=== PATIENT | male | born 1995 | race Two or more races ===

== ENCOUNTER 2018-10-01 13:26 | Emergency (ER) | payer MEDICAID ==
[~2018-10-01] VITALS: Ht 162.6 cm; Wt 79.0 kg
[2018-10-01 14:54] VITALS: BP 106/75
[2018-10-01] MEDS ORDERED: IBUPROFEN 600MG TABLET PO ONE (15:00)
== END 2018-10-01 15:22 | disposition home or self-care (01) ==
LOC: ER 13:26
DX: H61.001 Unspecified perichondritis of right external ear (principal); J45.909 Unspecified asthma, uncomplicated; F12.10 Cannabis abuse, uncomplicated
CPT/HCPCS: 99283

== ENCOUNTER 2019-03-31 09:18 | Emergency (ER) | payer MEDICAID ==
[~2019-03-31] VITALS: Ht 162.6 cm; Wt 79.0 kg
[2019-03-31 09:46] VITALS: BP 114/56
[2019-03-31] MEDS ORDERED: DEXAMETHASONE 4MG TABLET PO ONE (10:45)
[2019-03-31] MEDS ORDERED: IPRATROPIUM/ALBUTEROL 0.5-3(2.5)MG/3ML NEB HHN ONE ×2 (10:45→11:45)
== END 2019-03-31 11:58 | disposition home or self-care (01) ==
LOC: ER 09:18
DX: J45.909 Unspecified asthma, uncomplicated (principal); F12.10 Cannabis abuse, uncomplicated
CPT/HCPCS: 71045; 94640; 99284; J7620; J8540; Z7610

== ENCOUNTER 2019-04-13 13:51 | Emergency (ER) | payer SELFPAY ==
[~2019-04-13] VITALS: Ht 160 cm; Wt 79.0 kg
[2019-04-13] MEDS ORDERED: PREDNISONE 20MG TABLET PO ONE (21:00)
[2019-04-13] MEDS ORDERED: ALBUTEROL (0.083%) 2.5MG/3ML NEB HHN ONE ×2 (21:00→22:15)
[2019-04-14 02:10] VITALS: BP 120/78
== END 2019-04-14 02:11 | disposition home or self-care (01) ==
LOC: ER 13:51
DX: R05 Cough (principal); R06.2 Wheezing; F17.290 Nicotine dependence, other tobacco product, uncomplicated; F12.10 Cannabis abuse, uncomplicated
CPT/HCPCS: 71045; 94640; 99284; J7512; J7611; Z7610

== ENCOUNTER 2019-04-22 13:42 | Emergency (ER) | payer SELFPAY ==
[~2019-04-22] VITALS: Ht 149.9 cm; Wt 68.0 kg
[2019-04-22] MEDS ORDERED: IPRATROPIUM BROMIDE (0.02%) 0.5MG/2.5ML NEB HHN STA (14:34)
[2019-04-22] MEDS ORDERED: PREDNISONE 20MG TABLET PO STA (14:34)
[2019-04-22] MEDS ORDERED: ALBUTEROL (0.083%) 2.5MG/3ML NEB HHN STA ×2 (14:34→16:46)
[2019-04-22 18:25] VITALS: BP 125/64
== END 2019-04-22 18:49 | disposition home or self-care (01) ==
LOC: ER 13:42
DX: J45.901 Unspecified asthma with (acute) exacerbation (principal); F12.10 Cannabis abuse, uncomplicated; Z87.891 Personal history of nicotine dependence
CPT/HCPCS: 71045; 94644; 99285; J7512; J7611; Z7610

== ENCOUNTER 2019-07-24 22:29 | Emergency (ER) | payer SELFPAY ==
[~2019-07-24] VITALS: Ht 162.6 cm; Wt 73.0 kg
[2019-07-24] MEDS ORDERED: METHYLPREDNISOLONE SOD SUCC 125 MG/2 ML VIAL IM ONE (23:45)
[2019-07-24] MEDS ORDERED: IBUPROFEN 600MG TABLET PO ONE (23:45)
[2019-07-24] MEDS ORDERED: ALBUTEROL (0.083%) 2.5MG/3ML NEB HHN ONE (23:45)
[2019-07-25 01:58] VITALS: BP 138/87
== END 2019-07-25 01:59 | disposition home or self-care (01) ==
LOC: ER 22:29
DX: J45.901 Unspecified asthma with (acute) exacerbation (principal); F12.10 Cannabis abuse, uncomplicated
CPT/HCPCS: 71045; 94640; 96372; 99283; J2930; Z7610

== ENCOUNTER 2019-09-17 21:37 | Emergency (ER) | payer SELFPAY ==
[~2019-09-17] VITALS: Ht 167.6 cm; Wt 66.2 kg
[2019-09-17 21:48] VITALS: BP 122/73
[2019-09-17] MEDS ORDERED: ALBUTEROL (0.083%) 2.5MG/3ML NEB HHN ONE (22:45)
== END 2019-09-17 23:59 | disposition home or self-care (01) ==
LOC: ER 21:41
DX: J45.909 Unspecified asthma, uncomplicated (principal); F12.10 Cannabis abuse, uncomplicated
CPT/HCPCS: 99283; Z7610